=== PATIENT | female | born 1995 | race Caucasian/White ===

== ENCOUNTER 2017-04-13 15:46 | Emergency (ER) | payer BC, OTHER ==
[~2017-04-13 15:46] MED LIST: IBUPROFEN600 MG PO
== END 2017-04-13 18:49 | disposition home or self-care (01) ==
LOC: ER1 15:46
DX: T63.481A Toxic effect of venom of other arthropod, accidental (unintentional), initial encounter (principal); Z91.038 Other insect allergy status; X58.XXXA Exposure to other specified factors, initial encounter
CPT/HCPCS: 99283